=== PATIENT | male | born 1955 | race Caucasian/White ===

== ENCOUNTER 2021-10-22 01:58 | Inpatient (IN) | payer OTHER, MEDICARE ==
[2021-10-22 02:39] LABS: #Eosinphils 0.1 thou/uL (0.0-0.7); #Monocytes 0.8 thou/uL (0.11-0.59); #Neutrophils 6.9 thou/uL (1.40-6.50); %Basophils 0.3 % (0.0-1.0); %Lymphocytes 27.6 % (21.0-51.0); %Monocytes 7.6 % (0.0-10.0); %Neutrophils 63.4 % (42.0-75.0); Hemoglobin 11.8 g/dL (14.0-18.0); Mean Corpuscular HGB CONC 34.8 g/dL (32.0-36.0); Mean Corpuscular Hemoglobin 32.8 pg (27.0-31.0); Mean Corpuscular Volume 94.5 fL (78.0-98.0); Mean Platelet Volume 7.7 fL (7.4-10.4); Platelet Count 223 thou/uL (130-400); White Blood Cell (WBC) Count 10.9 thou/uL (4.8-10.8)
[2021-10-22] MEDS ORDERED: Octreotide Acetate 500 MCG/ML VIAL ONE ×2 (02:43→02:50)
[2021-10-22] MEDS ORDERED: Ondansetron PF 4 MG/2 ML Vial IVP PRN (03:31)
[2021-10-22] MEDS ORDERED: Acetaminophen 650 MG Suppository PR PRN (03:31)
[2021-10-22] MEDS ORDERED: Ondansetron ODT 4 MG TAB PO PRN (03:31)
[2021-10-22] MEDS ORDERED: Acetaminophen 325 MG TAB PO PRN (03:31)
[2021-10-22] MEDS ORDERED: Pantoprazole 80 MG, Admixture Fee 1 EACH in Sodium Chloride 0.9% 100 ML IVPB SCH (03:45)
[2021-10-22] MEDS ORDERED: Octreotide Acetate 1,250 MCG in Sodium Chloride 0.9% 250 ML 250 ML IVPB SCH (04:00)
[2021-10-22] MEDS: Sodium Chloride 0.9% 1,000 ML IV SCH ×2 (06:34→14:00)
[2021-10-22 06:59] LABS: Hemoglobin 11.2 g/dL (14.0-18.0)
[2021-10-22 07:08] LABS: SARS-CoV-2 NAA Rapid Test Not Detected (NotDetected)
[2021-10-22 07:16] LABS: Anion Gap 16 mmol/L (10-20); BUN (Urea Nitrogen) 76 mg/dL (8.4-25.7); Calc. Creatinine Clearance 0 mL/min (70-130); Calcium 9.4 mg/dL (7.8-10.44); Carbon Dioxide 17 mmol/L (23-31); Chloride 110 mmol/L (98-107); Estimated GFR 55; Glucose 147 mg/dL (80-115); Potassium 4.3 mmol/L (3.5-5.1); Sodium 139 mmol/L (136-145)
[2021-10-22] MEDS: Dextrose 5 % And 0.9 % NaCl 1,000 ML IV SCH ×2 (08:28→11:38)
[2021-10-22 11:54] VITALS: BP 100/58
[2021-10-22] MEDS ORDERED: Succinylcholine 200 MG/10 ml SYRINGE FS ONE (13:34)
[2021-10-22] MEDS ORDERED: Ondansetron PF 4 MG/2 ML Vial ONE (13:34)
[2021-10-22] MEDS ORDERED: Phenylephrine 10 MG/ML VIAL ONE (13:34)
[2021-10-22] MEDS ORDERED: PROPOFOL 200 MG/20 ML VIAL ONE (13:34)
[2021-10-22] MEDS ORDERED: Dexamethasone 20 MG/5 ML VIAL ONE (13:34)
[2021-10-22] MEDS ORDERED: Lidocaine 1% PF 5 ML VIAL ONE (13:34)
[2021-10-22] MEDS ORDERED: Ondansetron HCl/PF 4 MG/2 ML Vial IVP PRN (14:06)
[2021-10-22] MEDS ORDERED: Promethazine HCl 25 MG/ML VIAL IM PRN (14:06)
[2021-10-22] MEDS ORDERED: Promethazine HCl 25 MG/ML VIAL IVPB PRN (14:06)
[2021-10-22] MEDS ORDERED: Meperidine HCl/PF 25 MG/ML VIAL SLOW IVP PRN (14:06)
[2021-10-22 18:40] VITALS: BMI 28.0
[2021-10-22] MEDS: Pantoprazole 40 MG VIAL IVP SCH (20:18)
[2021-10-22] MEDS ORDERED: Pantoprazole 40 MG VIAL IVP SCH (21:00)
[2021-10-23] MEDS: Sodium Chloride 0.9% 1,000 ML IV SCH ×2 (01:19→12:35)
[2021-10-23 03:43] LABS: #Lymphocytes 1.5 thou/uL (1.20-3.40); #Monocytes 0.4 thou/uL (0.11-0.59); #Neutrophils 5.2 thou/uL (1.40-6.50); %Basophils 0.2 % (0.0-1.0); %Eosinophils 0.1 % (0.0-10.0); %Lymphocytes 20.5 % (21.0-51.0); %Monocytes 5.9 % (0.0-10.0); %Neutrophils 73.3 % (42.0-75.0); Mean Corpuscular HGB CONC 34.8 g/dL (32.0-36.0); Mean Corpuscular Hemoglobin 33.7 pg (27.0-31.0); Mean Corpuscular Volume 96.8 fL (78.0-98.0); Mean Platelet Volume 7.9 fL (7.4-10.4); Platelet Count 164 thou/uL (130-400); RBC Distribution Width 12.5 % (11.5-14.5); Red Blood Cell (RBC) Count 2.98 mill/uL (4.70-6.10); White Blood Cell (WBC) Count 7.1 thou/uL (4.8-10.8)
[2021-10-23 04:21] LABS: Anion Gap 12 mmol/L (10-20); BUN (Urea Nitrogen) 45 mg/dL (8.4-25.7); Calc. Creatinine Clearance 82 mL/min (70-130); Calcium 8.5 mg/dL (7.8-10.44); Carbon Dioxide 18 mmol/L (23-31); Chloride 117 mmol/L (98-107); Estimated GFR 61; Glucose 126 mg/dL (80-115); Potassium 4.5 mmol/L (3.5-5.1); Sodium 142 mmol/L (136-145)
[2021-10-23] MEDS: Pantoprazole 40 MG VIAL IVP SCH (08:55)
[2021-10-23 12:21] VITALS: TEMP 97.8
[2021-10-23 12:52] LABS: Hemoglobin 9.7 g/dL (14.0-18.0); Platelet Count 147 thou/uL (130-400)
== END 2021-10-23 15:02 | disposition home or self-care (01) | DRG 378 ==
LOC: ERS 01:58 → ERHOLD 03:22 → IMCU/EMU 18:38
PROVIDERS: ADMIT Student in an Organized Health Care Education/Training Program; ATTEND Student in an Organized Health Care Education/Training Program
PROC: 0W3P8ZZ Control Bleeding in Gastrointestinal Tract, Via Natural or Artificial Opening Endoscopic (ICD-10-PCS; principal; 2021-10-22)
PROC: 30233N1 Transfusion of Nonautologous Red Blood Cells into Peripheral Vein, Percutaneous Approach (ICD-10-PCS; 2021-10-22)
PROC: 0DB78ZX Excision of Stomach, Pylorus, Via Natural or Artificial Opening Endoscopic, Diagnostic (ICD-10-PCS; 2021-10-22)
DX: K25.4 Chronic or unspecified gastric ulcer with hemorrhage (principal); D62 Acute posthemorrhagic anemia; K29.71 Gastritis, unspecified, with bleeding; Z20.822 Contact with and (suspected) exposure to COVID-19; M06.9 Rheumatoid arthritis, unspecified; N18.9 Chronic kidney disease, unspecified; I95.9 Hypotension, unspecified; Z79.82 Long term (current) use of aspirin; Z79.899 Other long term (current) drug therapy
CPT/HCPCS: 36415; 80048; 85025; 86850; 86900; 86901; 88305; 88342; C1776; C9113; J1100; J2354; J2370; J2405; J2704; J3490; J7050; P9016; U0002

== ENCOUNTER 2022-04-06 04:34 | Observation (INO) | payer OTHER ==
[2022-04-06] MEDS ORDERED: Morphine 4 MG/ML VIAL SLOW IVP PRN ×4 (06:28→18:55)
[2022-04-06] MEDS ORDERED: Sodium Chloride 0.9% 1,000 ML IV SCH (06:30)
[2022-04-06] MEDS ORDERED: Ondansetron ODT 4 MG TAB SL PRN (06:30)
[2022-04-06] MEDS ORDERED: Ondansetron PF 4 MG/2 ML Vial IVP PRN ×2 (06:30→18:46)
[2022-04-06 06:32] VITALS: BMI 31.2
[2022-04-06] MEDS ORDERED: Piperacillin/Tazobactam 3.375 GM in Sodium Chloride 0.9% 100 ML IVPB SCH (09:00)
[2022-04-06 10:04] LABS: SARS-CoV-2 NAA Rapid Test Not Detected (NotDetected)
[2022-04-06] MEDS ORDERED: Bupivacaine/Epinephrine 0.25% 30 ML VIAL ONE (15:32)
[2022-04-06] MEDS ORDERED: Fentanyl 250 MCG/5 ML VIAL ONE (15:37)
[2022-04-06] MEDS ORDERED: Ondansetron PF 4 MG/2 ML Vial ONE (15:47)
[2022-04-06] MEDS ORDERED: NEOSTIGMINE 3 MG/3 ML SYR 3 MG/3 ML SYRINGE ONE (15:47)
[2022-04-06] MEDS ORDERED: Rocuronium Bromide 10 MG/ML (10ML VIAL) ONE (15:47)
[2022-04-06] MEDS ORDERED: Dexamethasone 20 MG/5 ML VIAL ONE (15:47)
[2022-04-06] MEDS ORDERED: PROPOFOL 200 MG/20 ML VIAL ONE (15:47)
[2022-04-06] MEDS ORDERED: Succinylcholine Chloride 100 MG/5 ML SYRINGE FS ONE (15:47)
[2022-04-06] MEDS ORDERED: Labetalol HCl 100 MG/20 ML VIAL ONE (15:47)
[2022-04-06] MEDS ORDERED: Lidocaine 1% PF 5 ML VIAL ONE (15:47)
[2022-04-06] MEDS ORDERED: Glycopyrrolate 0.2 MG/ML 5 ML SYRINGE ONE (15:47)
[2022-04-06] MEDS ORDERED: HYDROmorphone 2 MG/ML VIAL SLOW IVP PRN (17:24)
[2022-04-06] MEDS ORDERED: Morphine Sulfate 2 MG/ML SYRINGE SLOW IVP PRN (17:24)
[2022-04-06] MEDS ORDERED: Promethazine HCl 25 MG/ML VIAL IVPB PRN (17:24)
[2022-04-06] MEDS ORDERED: Ondansetron HCl/PF 4 MG/2 ML Vial IVP PRN (17:24)
[2022-04-06] MEDS ORDERED: Meperidine HCl/PF 25 MG/ML VIAL SLOW IVP PRN (17:24)
[2022-04-06] MEDS ORDERED: Promethazine HCl 25 MG/ML VIAL IM PRN ×2 (17:24→18:46)
[2022-04-06] MEDS ORDERED: Fentanyl 100 MCG/2 ML VIAL ONE ×2 (17:42→18:04)
[2022-04-06] MEDS ORDERED: HYDROcodone/Acetaminophen 10/325 mg Tablet PO PRN (18:46)
[2022-04-06] MEDS ORDERED: Mag-Al 1200 mg/1200 mg/30 ML UDCUP PO PRN (18:46)
[2022-04-06] MEDS ORDERED: Dextrose 5% in Water 1,000 ML IV PRN (18:46)
[2022-04-06] MEDS ORDERED: Dextrose 50% Abboject 50 ML SYRINGE SLOW IVP PRN (18:46)
[2022-04-06] MEDS ORDERED: hydrALAZINE 20 MG/ML VIAL SLOW IVP PRN (18:46)
[2022-04-06] MEDS ORDERED: Calcium Carbonate 500 MG ChewTAB PO PRN (18:46)
[2022-04-06] MEDS ORDERED: Ipratropium/Albuterol 3 ML NEB NEB PRN (18:46)
[2022-04-06] MEDS: D5 1/2 NS w/20 mEq KCL 1,000 ML IV SCH (19:58)
[2022-04-06] MEDS: Piperacillin/Tazobactam 3.375 GM in Sodium Chloride 0.9% 100 ML IVPB SCH (20:10)
[2022-04-06] MEDS: Famotidine/PF 20 mg/2ml Vial SLOW IVP SCH (20:10)
[2022-04-06] MEDS: Famotidine 20 MG TAB PO SCH (20:24)
[2022-04-07] MEDS: Piperacillin/Tazobactam 3.375 GM in Sodium Chloride 0.9% 100 ML IVPB SCH (04:11)
[2022-04-07] MEDS: D5 1/2 NS w/20 mEq KCL 1,000 ML IV SCH (04:19)
[2022-04-07 06:03] LABS: #Lymphocytes 0.6 thou/uL (1.20-3.40); #Monocytes 0.9 thou/uL (0.11-0.59); #Neutrophils 8.3 thou/uL (1.40-6.50); %Basophils 0.2 % (0.0-1.0); %Eosinophils 0.2 % (0.0-10.0); %Lymphocytes 6.4 % (21.0-51.0); %Monocytes 8.7 % (0.0-10.0); %Neutrophils 84.6 % (42.0-75.0); Hemoglobin 12.6 g/dL (14.0-18.0); Mean Corpuscular HGB CONC 34.2 g/dL (32.0-36.0); Mean Corpuscular Hemoglobin 32.4 pg (27.0-31.0); Mean Corpuscular Volume 94.6 fl (78.0-98.0); Mean Platelet Volume 7.9 fL (7.4-10.4); Platelet Count 132 10x3/uL (130-400); RBC Distribution Width 12.6 % (11.5-14.5); White Blood Cell (WBC) Count 9.8 10x3/uL (4.8-10.8)
[2022-04-07 06:25] LABS: ALT (SGPT) 56 U/L (8-55); AST (SGOT) 38 U/L (5-34); Albumin 3.1 g/dL (3.4-4.8); Alkaline Phosphatase 51 U/L (40-110); Anion Gap 14 mmol/L (10-20); BUN (Urea Nitrogen) 20 mg/dL (8.4-25.7); Bilirubin, Total 2.1 mg/dL (0.2-1.2); Calc. Creatinine Clearance 91 mL/min (70-130); Calcium 8.7 mg/dL (7.8-10.44); Carbon Dioxide 20 mmol/L (23-31); Chloride 107 mmol/L (98-107); Estimated GFR 61; Glucose 208 mg/dL (80-115); Lipase 14 U/L (8-78); Potassium 4.3 mmol/L (3.5-5.1); Protein, Total 6.1 g/dL (5.8-8.1); Sodium 137 mmol/L (136-145)
[2022-04-07] MEDS: Famotidine/PF 20 mg/2ml Vial SLOW IVP SCH (09:35)
[2022-04-07] MEDS: Famotidine 20 MG TAB PO SCH (09:35)
[2022-04-07 11:57] VITALS: BP 144/74; TEMP 97.6
== END 2022-04-07 13:30 | disposition home or self-care (01) ==
LOC: SURG A 06:10 → INTOOBSV 06:10
PROVIDERS: ADMIT Specialist; ATTEND Specialist
PROC: 0FT44ZZ Resection of Gallbladder, Percutaneous Endoscopic Approach (ICD-10-PCS; principal; 2022-04-06)
DX: K80.12 Calculus of gallbladder with acute and chronic cholecystitis without obstruction (principal); M06.9 Rheumatoid arthritis, unspecified; E80.6 Other disorders of bilirubin metabolism; E66.9 Obesity, unspecified; Z68.31 Body mass index [BMI] 31.0-31.9, adult; Z20.822 Contact with and (suspected) exposure to COVID-19
CPT/HCPCS: 36415; 80053; 83690; 85025; 88304; 96365; 96375; 96376; C1889; G0378; J1100; J2270; J2405; J2543; J2704; J3010; J3480; J3490; J7050; S0028; U0002